=== PATIENT | female | born 1960 | race Caucasian/White ===

== ENCOUNTER → 2017-12-09 | Day surgery (SDC) | payer OTHER | END | disposition home or self-care (01) | LOC: ADM 12-06 07:00 → CIR.AMB 07:00 | DX: M70.21 Olecranon bursitis, right elbow (principal) ==

== ENCOUNTER 2018-01-13 07:00 | Inpatient (IN) | payer OTHER ==
[~2018-01-13] VITALS: Ht 157.5 cm; Wt 81.6 kg
== END 2018-01-20 09:31 | DRG 743 ==
LOC: ADM 07:00 → EDSTATUS 07:00 → ADM 01-14 07:00 → OB/GYN 01-17 06:40 → O/R 01-17 06:40 → SURH 01-17 07:00 → OB/GYN 01-17 10:58 → SURH 01-17 15:15 → OB/GYN 01-20 09:31
PROVIDERS: Specialist
PROC: 0UT70ZZ Resection of Bilateral Fallopian Tubes, Open Approach (ICD-10-PCS; 2018-01-17)
PROC: 0US20ZZ Reposition Bilateral Ovaries, Open Approach (ICD-10-PCS; 2018-01-17)
PROC: 0UT90ZL Resection of Uterus, Supracervical, Open Approach (ICD-10-PCS; principal; 2018-01-17 15:15)
DX: D25.1 Intramural leiomyoma of uterus (principal); D25.2 Subserosal leiomyoma of uterus; N84.0 Polyp of corpus uteri; N80.0 Endometriosis of uterus; N92.0 Excessive and frequent menstruation with regular cycle